=== PATIENT | female | born 1965 | race Caucasian/White ===

== ENCOUNTER 2017-03-12 15:12 | Inpatient (IN) | payer SELFPAY ==
[2017-03-12] MEDS ORDERED: Temazepam 15 MG Cap PO PRN (15:26)
[2017-03-12] MEDS ORDERED: Ibuprofen 200 MG Tab PO PRN (15:26)
[2017-03-12] MEDS ORDERED: Ondansetron 4 MG Tab.DIS PO PRN (15:26)
[2017-03-12] MEDS ORDERED: Acetaminophen/HYDROcodone 325-5 MG Tab PO PRN (15:26)
[2017-03-12] MEDS ORDERED: Magnesium Hydroxide 400 MG/5 ML Susp 30 ML Cup PO PRN (15:26)
[2017-03-12] MEDS ORDERED: Sodium Chloride 0.9% 10 ML Syringe FLUSH PRN (15:26)
[2017-03-12] MEDS ORDERED: Acetaminophen 325 MG Tab PO PRN (15:26)
[2017-03-12] MEDS ORDERED: Enoxaparin 40 MG/0.4 ML Syringe SUBCUT SCH (15:30)
[2017-03-12] MEDS ORDERED: ceFAZolin 1 GM Vial IVPUSH ONE (15:45)
[2017-03-12 16:07] LABS: CHLORIDE,CL 103 mEq/L (98-106); SODIUM,NA 142 mEq/L (136-145)
[2017-03-12] MEDS: ceFAZolin 1 GM Vial IVPUSH SCH (23:46)
[2017-03-13] MEDS: ceFAZolin 1 GM Vial IVPUSH SCH ×3 (06:09→18:22)
--- NOTE | 2017-03-13 08:41 | PCM.PN ---
- General Info Date of Service: 03/13/17 Admission Dx/Problem (Free Text): Erysipelas Functional Status: Reports: pain controlled, tolerating diet, ambulating - Review of Systems General: Reports: Fever, Fatigue. Denies: Weakness HEENT: Denies: ear pain, sinus congestion, rhinitis Pulmonary: Denies: shortness of breath, cough, wheezing Cardiovascular: Denies: Chest Pain, Edema, Lightheadedness Gastrointestinal: Denies: Abdominal pain, Nausea, Vomiting Genitourinary: Reports: no symptoms Musculoskeletal: Reports: no symptoms Skin: Reports: other (redness and warmth noted yet. Patient denies pain. Less pruritic) Neurological: Reports: No Symptoms - Patient Data Vitals - most recent: Last Vital Signs Temp 99.6 F 03/13/17 07:54 Pulse 62 03/13/17 07:54 Resp 16 03/13/17 07:54 BP 113/64 03/13/17 07:54 Pulse Ox 99 03/13/17 07:54 Weight - most recent: 144 lb 11.2 oz I&O - last 24 hours: Intake & Output 03/12/17 03/13/17 03/13/17 22:59 06:59 14:59 Intake Total 180 Balance 180 Lab Results last 24 hrs: Laboratory Results - last 24 hr 03/12/17 03/12/17 Range/Units 15:50 15:50 WBC 5.9 (5.0-10.0) 10^3/uL RBC 4.52 (4.00-5.50) 10^6/uL Hgb 12.3 (12.0-16.0) g/dL Hct 38.2 (37.0-47.0) % MCV 84.5 (82.0-94.0) fL MCH 27.2 (27.0-32.0) pg MCHC 32.2 L (33.0-38.0) g/dL RDW Coeff of Keiry 14.3 (11.0-15.0) % Plt Count 173 (150-400) 10^3/uL Neut % (Auto) 63.0 (35-85) % Lymph % (Auto) 19.0 (10-55) % [place] % (Auto) 14.3 (0-16) % Eos % (Auto) 3.4 (0-5) % Baso % (Auto) 0.3 (0-3) % Neut # (Auto) 3.70 (1.80-7.00) 10^3/uL Lymph # (Auto) 1.12 (1.00-4.80) 10^3/uL [place] # (Auto) 0.84 H (0.00-0.80) 10^3/uL Eos # (Auto) 0.20 (0.00-0.45) 10^3/uL Baso # (Auto) 0.02 10^3/uL Sodium 142 (136-145) mEq/L Potassium 3.5 (3.5-5.0) mEq/L Chloride 103 (98-106) mEq/L Carbon Dioxide 31 (21-32) mmol/L BUN 13 (7-18) mg/dL Creatinine 0.8 (0.6-1.0) mg/dL Est Cr Clr Drug Dosing 79.08 mL/min Estimated GFR (MDRD) > 60 (>=60) mL/min Glucose 100 H (75-99) mg/dL Calcium 9.0 (8.4-10.1) mg/dL C-Reactive Protein 15.7 H (0.2-0.8) mg/dL Med Orders - Current: Current Medications Acetaminophen (Tylenol) 650 mg PO Q4H PRN PRN Reason: Pain (Mild 1-3)/fever Hydrocodone Bitart/Acetaminophen ([place] 325-5 Mg) 2 tab PO Q4H PRN PRN Reason: Pain (moderate 4-6) Cefazolin Sodium (Ancef) 1 gm IVPUSH Q6H [facility] Last Admin: 03/13/17 06:09 Dose: 1 gm Vancomycin HCl 1 gm/ Sodium (Chloride) 250 mls @ 167 mls/hr IV Q12H [facility] Last Admin: 03/13/17 07:35 Dose: 167 mls/hr Ibuprofen (Motrin) 400 mg PO Q6H PRN PRN Reason: Pain (mild 1-3) Magnesium Hydroxide (Milk Of Magnesia) 30 ml PO Q12H PRN PRN Reason: Constipation Ondansetron HCl (Zofran Odt) 4 mg PO Q4H PRN PRN Reason: nausea, able to take PO Sodium Chloride (Saline Flush) 10 ml FLUSH ASDIRECTED PRN PRN Reason: Keep Vein Open Temazepam (Restoril) 15 mg PO BEDTIME PRN PRN Reason: Sleep Vancomycin HCl (Pharmacy To Dose - Vancomycin) 1 dose .XX ASDIRECTED DOV Discontinued Medications Cefazolin Sodium (Ancef) 1 gm IVPUSH ONETIME ONE Stop: 03/12/17 15:46 Last Admin: 03/12/17 16:25 Dose: 1 gm Enoxaparin Sodium (Lovenox) 40 mg SUBCUT Q24H [facility] Last Admin: 03/12/17 16:59 Dose: Not Given Vancomycin HCl 1 gm/ Sodium (Chloride) 250 mls @ 167 mls/hr IV ONETIME ONE Stop: 03/12/17 17:59 Last Admin: 03/12/17 16:45 Dose: 167 mls/hr - Exam General: alert, oriented HEENT: Mucous membr. moist/pink Lungs: Clear to auscultation, Normal respiratory effort Cardiovascular: Regular Rate, Regular Rhythm Abdomen: bowel sounds present, soft, no tenderness Extremities: no edema Skin: warm, dry, other (erythema, swelling and warmth noted to face. Areas of demarcation less pronounced than yesterday. ) Neurological: no new focal deficit Psy/Mental Status: alert, normal affect, normal mood - Problem List & Annotations (1) Erysipelas SNOMED Code(s): 67425739 Code(s): A46 - ERYSIPELAS Status: Acute Priority: High Current Visit: Yes - Problem List Review Problem List Initiated/Reviewed/Updated: Yes - My Orders Last 24 Hours: My Active Orders 03/12/17 15:26 Patient Status [ADT] Routine Oxygen Therapy [RC] .PRN Vital Signs [RC] 0000,0400,0800,1200,1600,2000 CULTURE BLOOD [BC] Timed CULTURE WOUND [RM] Routine Acetaminophen [Tylenol] 650 mg PO Q4H PRN Acetaminophen/HYDROcodone [[place] 325-5 MG] 2 tab PO Q4H PRN Ibuprofen [Motrin] 400 mg PO Q6H PRN Magnesium Hydroxide [Milk of Magnesia] 30 ml PO Q12H PRN Ondansetron [Zofran ODT] 4 mg PO Q4H PRN Sodium Chloride 0.9% [Saline Flush] 10 ml FLUSH ASDIRECTED PRN Temazepam [Restoril] 15 mg PO BEDTIME PRN Saline Lock Insert [OM.PC] Routine Resuscitation Status Routine 03/12/17 Dinner Regular Diet [DIET] 03/13/17 00:00 ceFAZolin [Ancef] 1 gm IVPUSH Q6H 03/13/17 08:00 Vancomycin 1 gm Sodium Chloride 0.9% [Normal Saline] 250 ml IV Q12H - Assessment Assessment:: Erysipelas - Plan Plan:: Patient doing well. States facial area feels less tight, less pruritic. She has a low grade fever this am. Labs reviewed from admit. WBC stable 5.9, CRP 15.7. Electrolytes stable. Will continue with same IV antibiotics. Monitor fever. Repeat labs in am. Possible discharge tomorrow if steady improvement.
[2017-03-14] MEDS: ceFAZolin 1 GM Vial IVPUSH SCH ×2 (00:32→05:59)
[2017-03-14 08:23] LABS: CHLORIDE,CL 107 mEq/L (98-106); SODIUM,NA 143 mEq/L (136-145)
[2017-03-14] MEDS ORDERED: Sulfamethoxazole/Trimethoprim 800-160 MG Tab PO ONE (08:44)
[2017-03-14 11:44] VITALS: BP 132/70
--- NOTE | 2017-03-14 15:13 | PCM.DCSUM1 ---
Discharge Summary - Hospital Course Free Text/Narrative:: Patient presented to clinic on Sunday with increased redness and swelling to her face. She had an abscess in her groin the week prior that had opened up and was draining but no open lesions on her face. Was seen in a walk in clinic in [place] and told she had a "fever infection" and was started on Cleocin. Today she states the symptoms are much worse. She noted increase in the swelling, especially around her eyes. [place] a fullness and was pruritic. She was admitted and started on Vancomycin and Ancef for staph and strep coverage. Wound culture of groin ordered if able to develops any further drainage. She had blood cultures and labs ordered on admission. WBC was stable. CRP 15.7. - Discharge Data Discharge Date: 03/14/17 Discharge Disposition: Home, Self-Care 01 Condition: Good - Discharge Diagnosis/Problem(s) (1) Erysipelas SNOMED Code(s): 94977869 ICD Code: A46 - ERYSIPELAS Status: Acute Priority: High - Patient Summary/Data Complications: none Hospital Course: Patient has had improvement overall of redness and swelling of her face. She has less pruritis and pressure. No fevers today. CRP improved to 3.9. WBC remains stable. Appetite good. Will give another dose of Vancomycin prior to discharge home. Due to sulfa allergy, will start on Keflex on discharge. Follow up next week for recheck. Patient was advised today that if she does not note steady improvement of her symptoms or if they worsen, she may need to complete 10 days of Vancomycin IV. - Patient Instructions Diet: Heart Healthy Diet Activity: As Tolerated - Discharge Plan Prescriptions/Med Rec: Cephalexin [IJD: Cephalexin] 500 mg PO QID #28 cap Home Medications: Home Meds Cephalexin [IJD: Cephalexin] 500 mg PO QID #28 cap 03/14/17 [Rx] Patient Handouts: Cellulitis, Adult, [id number] Referrals: Ciara Cardoza PA [ED Midlevel Provider] - (Follow up in 10 days with Sonya) - Discharge Summary/Plan Comment DC Time >30 min.: No Discharge Summary/Plan Comment: Discharge home on Keflex. Follow up in 10 days in clinic or sooner if needed. - General Info Date of Service: 03/14/17 Admission Dx/Problem (Free Text: Erysipelas Functional Status: Reports: pain controlled, tolerating diet, ambulating - Review of Systems General: Denies: Fever, Weakness, Fatigue HEENT: Denies: dysphasia, sinus congestion, rhinitis Pulmonary: Denies: shortness of breath, wheezing Cardiovascular: Denies: Chest Pain, Edema, Lightheadedness Gastrointestinal: Denies: Abdominal pain, Decreased appetite, Nausea, Vomiting Genitourinary: Reports: no symptoms Musculoskeletal: Reports: no symptoms Skin: Reports: other (redness and swelling to face improved.) Neurological: Reports: No Symptoms Psychiatric: Reports: no symptoms - Patient Data Vitals - Most Recent: Last Vital Signs Temp 98.3 F 03/14/17 11:44 Pulse 58 L 03/14/17 11:44 Resp 16 03/14/17 11:44 BP 132/70 03/14/17 11:44 Pulse Ox 100 03/14/17 11:44 Weight - Most Recent: 144 lb 11.2 oz I&O - Last 24 hours: Intake & Output 03/14/17 03/14/17 03/14/17 06:59 14:59 22:59 Intake Total 180 Balance 180 Lab Results - Last 24 hrs: Laboratory Results - last 24 hr 03/14/17 03/14/17 Range/Units 07:55 07:55 WBC 3.5 L (5.0-10.0) 10^3/uL RBC 4.08 (4.00-5.50) 10^6/uL Hgb 11.1 L (12.0-16.0) g/dL Hct 34.7 L (37.0-47.0) % MCV 85.0 (82.0-94.0) fL MCH 27.2 (27.0-32.0) pg MCHC 32.0 L (33.0-38.0) g/dL RDW Coeff of [place] 14.0 (11.0-15.0) % Plt Count 170 (150-400) 10^3/uL Neut % (Auto) 43.3 (35-85) % Lymph % (Auto) 36.1 (10-55) % [place] % (Auto) 12.0 (0-16) % Eos % (Auto) 7.7 H (0-5) % Baso % (Auto) 0.9 (0-3) % Neut # (Auto) 1.51 L (1.80-7.00) 10^3/uL Lymph # (Auto) 1.26 (1.00-4.80) 10^3/uL [place] # (Auto) 0.42 (0.00-0.80) 10^3/uL Eos # (Auto) 0.27 (0.00-0.45) 10^3/uL Baso # (Auto) 0.03 10^3/uL Sodium 143 (136-145) mEq/L Potassium 4.2 (3.5-5.0) mEq/L Chloride 107 H (98-106) mEq/L Carbon Dioxide 31 (21-32) mmol/L BUN 13 (7-18) mg/dL Creatinine 0.8 (0.6-1.0) mg/dL Est Cr Clr Drug Dosing 79.08 mL/min Estimated GFR (MDRD) > 60 (>=60) mL/min Glucose 105 H (75-99) mg/dL Calcium 8.5 (8.4-10.1) mg/dL C-Reactive Protein 3.9 H (0.2-0.8) mg/dL Vancomycin Trough 9.0 L (10-20) ug/mL Med Orders - Current: Current Medications Discontinued Medications Acetaminophen (Tylenol) 650 mg PO Q4H PRN PRN Reason: Pain (Mild 1-3)/fever Hydrocodone Bitart/Acetaminophen ([place] 325-5 Mg) 2 tab PO Q4H PRN PRN Reason: Pain (moderate 4-6) Cefazolin Sodium (Ancef) 1 gm IVPUSH Q6H [facility] Last Admin: 03/14/17 05:59 Dose: 1 gm Cefazolin Sodium (Ancef) 1 gm IVPUSH ONETIME ONE Stop: 03/12/17 15:46 Last Admin: 03/12/17 16:25 Dose: 1 gm Enoxaparin Sodium (Lovenox) 40 mg SUBCUT Q24H [facility] Last Admin: 03/12/17 16:59 Dose: Not Given Vancomycin HCl 1 gm/ Sodium (Chloride) 250 mls @ 167 mls/hr IV Q12H [facility] Last Admin: 03/14/17 09:03 Dose: 167 mls/hr Vancomycin HCl 1 gm/ Sodium (Chloride) 250 mls @ 167 mls/hr IV ONETIME ONE Stop: 03/12/17 17:59 Last Admin: 03/12/17 16:45 Dose: 167 mls/hr Ibuprofen (Motrin) 400 mg PO Q6H PRN PRN Reason: Pain (mild 1-3) Magnesium Hydroxide (Milk Of Magnesia) 30 ml PO Q12H PRN PRN Reason: Constipation Ondansetron HCl (Zofran Odt) 4 mg PO Q4H PRN PRN Reason: nausea, able to take PO Sodium Chloride (Saline Flush) 10 ml FLUSH ASDIRECTED PRN PRN Reason: Keep Vein Open Temazepam (Restoril) 15 mg PO BEDTIME PRN PRN Reason: Sleep Vancomycin HCl (Pharmacy To Dose - Vancomycin) 1 dose .XX ASDIRECTED DOV - Exam General: Reports: alert, oriented HEENT: Reports: Mucous membr. moist/pink Neck: Reports: supple Lungs: Reports: Clear to auscultation, Normal respiratory effort Cardiovascular: Reports: Regular Rate, Regular Rhythm Abdomen: Reports: bowel sounds present, soft, no tenderness Skin: Reports: other (facial swelling and redness has improved, much less pronounced than on admission. Areas warm but not hot.) Neurological: Reports: no new focal deficit Psy/Mental Status: Reports: alert, normal affect, normal mood *Q Meaningful Use (DIS) - VTE *Q VTE Criteria *Q: - Stroke *Q Stroke Criteria *Q: - AMI *Q AMI Criteria *Q:
== END 2017-03-14 13:00 | disposition home or self-care (01) | DRG 603 ==
LOC: UNDOADMIN 15:12 → CC.MS 15:12
PROVIDERS: ADMIT Physician Assistant Medical; ATTEND Family Medicine
DX: A46 Erysipelas (principal)
CPT/HCPCS: 36415; 80048; 80202; 85025; 86140; J0690; J3370; J7050

== ENCOUNTER → 2022-06-23 | Day surgery (SDC) | payer SELFPAY ==
[~2022-06-23] MED LIST: Lactated Ringers 1,000 ML IV SCH; Propofol 200 MG/20 ML SDV ONE
[2022-06-23 15:14] VITALS: BP 100/60; PULSE 56
== END ==
LOC: CC.SDS 07:51
PROVIDERS: ATTEND Family Medicine
DX: K29.50 Unspecified chronic gastritis without bleeding (principal); K44.9 Diaphragmatic hernia without obstruction or gangrene; K21.9 Gastro-esophageal reflux disease without esophagitis; J43.9 Emphysema, unspecified; J45.909 Unspecified asthma, uncomplicated; Z88.2 Allergy status to sulfonamides; Z79.51 Long term (current) use of inhaled steroids
CPT/HCPCS: 87081; J2704; J7120

== ENCOUNTER 2023-06-04 16:04 | Emergency (ER) | payer SELFPAY ==
[2023-06-04] MEDS ORDERED: Albuterol/Ipratropium 3.0-0.5 MG/3 ML Neb Soln ONE (16:07)
[2023-06-04 16:28] LABS: BASOPHILS ABSOLUTE AUTO 0.02 10^3/uL (0.00-0.50); BASOPHILS PERCENT AUTO 0.2 % (0-1); EOSINOPHILS ABSOLUTE AUTO 0.12 10^3/uL (0.00-1.50); EOSINOPHILS PERCENT AUTO 1.1 % (0-6); HEMATOCRIT 39.8 % (37.0-47.0); HEMOGLOBIN 13.4 g/dL (12.0-16.0); IMMATURE GRAN ABSOLUTE AUTO 0.01 10^3/uL (0.00-0.49); IMMATURE GRAN PERCENT AUTO 0.1 % (0.0-4.9); LYMPHOCYTES ABSOLUTE AUTO 0.65 10^3/uL (0.60-5.00); LYMPHOCYTES PERCENT AUTO 5.8 % (24-44); MEAN CORPUSCULAR HEMOGLOBIN 27.4 pg (27.0-32.0); MEAN CORPUSCULAR HGB CONC 33.7 g/dL (32.0-36.0); MEAN CORPUSCULAR VOLUME 81.4 fL (83.0-97.0); MONOCYTES ABSOLUTE AUTO 0.43 10^3/uL (0.00-1.50); MONOCYTES PERCENT AUTO 3.8 % (0-10); NEUTROPHILS ABSOLUTE AUTO 9.96 x10^3/uL (1.80-8.00); PLATELET COUNT,PLT 221 10^3/uL (150-400); RED BLOOD CELL COUNT 4.89 x10^6/uL (4.00-5.50); WHITE BLOOD CELL COUNT,WBC 11.2 10^3/uL (4.0-11.0)
[2023-06-04 16:42] LABS: ALBUMIN 3.7 g/dL (3.4-5.0); BILIRUBIN TOTAL 0.7 mg/dL (0.0-1.0); EST CRCL DRUG DOSING (CG) 58.18 mL/min; POTASSIUM,K 3.7 mEq/L (3.5-5.0); PROTEIN TOTAL,TP 6.9 g/dL (6.4-8.2)
[2023-06-04] MEDS ORDERED: Albuterol/Ipratropium 3.0-0.5 MG/3 ML Neb Soln NEB ONE (16:46)
[2023-06-04 17:03] VITALS: BP 102/62; PULSE 73
== END 2023-06-04 17:11 | disposition home or self-care (01) ==
LOC: CC.ED 16:04
DX: J45.901 Unspecified asthma with (acute) exacerbation (principal); J06.9 Acute upper respiratory infection, unspecified; K21.9 Gastro-esophageal reflux disease without esophagitis; Z79.899 Other long term (current) drug therapy; Z88.2 Allergy status to sulfonamides; Z20.822 Contact with and (suspected) exposure to COVID-19
CPT/HCPCS: 36415; 71046; 80053; 85025; 87804; 94640; 99285; J7620-GY; U0002